=== PATIENT | female | born 1960 | race African-American/Black ===

== ENCOUNTER 2021-07-07 23:33 | Inpatient (IN) | payer OTHER ==
[~2021-07-07] VITALS: Ht 162.6 cm; Wt 99.3 kg
[~2021-07-07 23:33] MED LIST: ALBUTEROL; ENALIPRIL; IBUP-1008; NIFEDICAL
[2021-07-07] MEDS ORDERED: ONDANSETRON HCL 4MG/2ML INJ IV STA (23:44)
[2021-07-08 01:22] LABS: BASOPHILS % 0.5 % (0.0-2.0); EOSINOPHILS % 0.8 % (0.0-5.0); HEMATOCRIT. 32.8 % (36.0-48.0); HEMOGLOBIN. 10.1 g/dL (12.0-16.0); LYMPHOCYTES % 9.8 % (20.0-50.0); MEAN CORPUSCULAR HEMOGLOBIN 21.5 pg (28.0-32.0); MEAN CORPUSCULAR VOLUME 69.5 fL (81.0-99.0); MEAN PLATELET VOLUME 8.7 fl (7.4-10.4); MONOCYTES % 5.9 % (2.0-8.0); PLATELET 317 x1000/uL (130-400); RED BLOOD CELL COUNT 4.72 mill/uL (4.2-5.4)
[2021-07-08 01:29] LABS: CHLORIDE 109 mEq/L (98-107)
[2021-07-08] MEDS ORDERED: MORPHINE SULFATE 4 MG/ML CPJ (NOT FOR IM USE) IV ONE ×2 (02:00→04:00)
[2021-07-08 02:38] LABS: CLARITY URINE CLEAR (CLEAR); COLOR URINE YELLOW (YELLOW); KETONES URINE NEGATIVE (NEGATIVE); LEUKOCYTE ESTERASE URINE NEGATIVE (NEGATIVE); NITRITE URINE NEGATIVE (NEGATIVE); OCCULT BLOOD URINE NEGATIVE (NEGATIVE); PROTEIN URINE NEGATIVE (NEGATIVE); SPECIFIC GRAVITY URINE 1.017 (1.005-1.030); UROBILINOGEN URINE 0.2 E.U./dL (0.2-1.0)
[2021-07-08] MEDS ORDERED: PIPERACILLIN/TAZOBACTAM 3.375GM/50ML PREMIX IV SCH (03:30)
[2021-07-08] MEDS ORDERED: METRONIDAZOLE 500 MG PREMIX 100 ML IV ONE (03:30)
[2021-07-08] MEDS ORDERED: IOHEXOL-300 100 ML BOTTLE ONE (03:33)
[2021-07-08] MEDS ORDERED: METRONIDAZOLE 500MG TABLET PO SCH ×2 (03:45→14:00)
[2021-07-08 07:06] LABS: PLATELET ESTIMATE NORMAL
[2021-07-08] MEDS ORDERED: SODIUM CHLORIDE 0.9% 1,000 ML IV SCH (08:45)
[2021-07-08] MEDS ORDERED: NALOXONE HCL 0.4MG/ML VIAL IV PRN (09:00)
[2021-07-08] MEDS: HYDROCODONE/ACETAMINOPHEN 5/325MG TABLET PO PRN ×2 (09:05→15:46)
[2021-07-08] MEDS: PANTOPRAZOLE SODIUM 40 MG/VIAL IV SCH (09:05)
[2021-07-08] MEDS ORDERED: METRONIDAZOLE 500MG/100ML PREMIX IV SCH (14:00)
[2021-07-08 15:29] LABS: CHLORIDE 106 mEq/L (98-107)
[2021-07-08 15:31] LABS: HEMATOCRIT 32.7 % (36.0-48.0); HEMOGLOBIN 10.1 g/dL (12.0-16.0); MEAN CORPUSCULAR HEMOGLOBIN 21.5 pg (28.0-32.0); MEAN CORPUSCULAR VOLUME 69.6 fL (81.0-99.0); PLATELET 290 x1000/uL (130-400); RED CELL DISTRIBUTION WIDTH 15.9 % (11.6-14.6)
[2021-07-08 15:38] LABS: CREATINE KINASE 82 IU/L (26-192)
[2021-07-08] MEDS ORDERED: LEVOFLOXACIN 500MG PREMIX 100 ML IV NR ×3 (16:45→20:00)
[2021-07-08 18:20] VITALS: BP 145/88
[2021-07-08] MEDS: ACETAMINOPHEN 325MG TABLET PO PRN (18:25)
[2021-07-08] MEDS ORDERED: nifedipine PO (18:43)
[2021-07-08] MEDS ORDERED: FERR-71 PO (18:43)
[2021-07-08] MEDS ORDERED: HYDR25TA PO (18:43)
[2021-07-08 20:00] VITALS: BP 152/60
[2021-07-08] MEDS ORDERED: METRONIDAZOLE 500 MG PREMIX 100 ML IV SCH (21:30)
[2021-07-08] MEDS: MORPHINE SULFATE 2 MG/ML CPJ (NOT FOR IM USE) IV PRN (21:41)
[2021-07-08] MEDS: DEXT 5%/0.45% NACL KCL 20MEQ/L 1,000 ML IV SCH (23:30)
[2021-07-09] VITALS (49 sets, daily range): BP systolic 114–172; BP diastolic 61–126
[2021-07-09] MEDS: METRONIDAZOLE 500MG TABLET PO SCH ×3 (00:10→14:00)
[2021-07-09] MEDS: MORPHINE SULFATE 2 MG/ML CPJ (NOT FOR IM USE) IV PRN (05:11)
[2021-07-09] MEDS: ONDANSETRON HCL 4MG/2ML INJ IV PRN (05:18)
[2021-07-09 07:10] LABS: BASOPHILS % 0.2 % (0.0-2.0); HEMATOCRIT. 29.5 % (36.0-48.0); HEMOGLOBIN. 9.4 g/dL (12.0-16.0); LYMPHOCYTES % 7.9 % (20.0-50.0); MEAN CORPUSCULAR HEMOGLOBIN 22.3 pg (28.0-32.0); MEAN CORPUSCULAR VOLUME 69.8 fL (81.0-99.0); MEAN PLATELET VOLUME 8.7 fl (7.4-10.4); NEUTROPHILS % 82.9 % (40.0-76.0); PLATELET 257 x1000/uL (130-400); RED BLOOD CELL COUNT 4.22 mill/uL (4.2-5.4); RED CELL DISTRIBUTION WIDTH 15.6 % (11.6-14.6)
[2021-07-09 07:35] LABS: CHLORIDE 106 mEq/L (98-107)
[2021-07-09 07:53] LABS: PHOSPHORUS 2.1 mg/dL (2.5-4.9)
[2021-07-09 07:54] LABS: LDL CHOLESTEROL 68 mg/dL (5-100)
[2021-07-09 08:01] LABS: HDL CHOLESTEROL 72 mg/dL (40-59)
[2021-07-09 08:03] LABS: T4 FREE 1.07 ng/dL (0.76-1.46)
[2021-07-09] MEDS ORDERED: BUPIVACAINE HCL 0.5% (5MG/ML) 50ML ONE (09:28)
[2021-07-09] MEDS ORDERED: HYDROMORPHONE HCL/PF 2MG/ML (OR) ONE (09:34)
[2021-07-09] MEDS ORDERED: ROCURONIUM BROMIDE 10MG/ML VIAL 5ML IV ONE (09:34)
[2021-07-09] MEDS ORDERED: DEXAMETHASONE 4MG/ML 1ML VIAL ONE (09:35)
[2021-07-09] MEDS ORDERED: PROPOFOL 10MG/ML 100ML 100 ML IV ONE (09:38)
[2021-07-09] MEDS ORDERED: CEFAZOLIN SODIUM 1000MG/VIAL ONE (09:51)
[2021-07-09] MEDS ORDERED: ALBUMIN HUMAN 12.5GM/50ML (25%) IV ONE (09:53)
[2021-07-09] MEDS ORDERED: MIDAZOLAM HCL 5 MG/ML VIAL ONE (10:48)
[2021-07-09] MEDS ORDERED: LEVOFLOXACIN 500MG PREMIX 100 ML IV SCH (11:00)
[2021-07-09] MEDS ORDERED: HYDROMORPHONE HCL/PF 2MG/ML CPJ IV PRN (11:15)
[2021-07-09] MEDS: PROPOFOL 10MG/ML 100ML 100 ML IV PRN ×3 (11:30→22:46)
[2021-07-09] MEDS ORDERED: FENTANYL CITRATE/PF 2,500 MCG in SODIUM CHLORIDE 0.9% 200 ML IV PRN (11:30)
[2021-07-09 11:38] LABS: BG BASE EXCESS -3.9 mmol/L (-2.0-2.0); BG CARBOXYHEMOGLOBIN 0.4 % (0.5-1.5); BG DEOXYHEMOGLOBIN 0.8 % (0.0-5.0); BG FRACTION INSPIRED OXYGEN 100; BG HCO3 ACT 22.9 mmol/L (22.0-26.0); BG METHEMOGLOBIN 0.3 % (0.0-1.5); BG OXYGEN SATURATION 99.2 % (92.0-98.5); BG OXYHEMOGLOBIN 98.5 % (94.0-97.0); BG PCO2 50.8 mmHg (35.0-45.0); BG PH 7.272 (7.350-7.450); BG PO2 536.5 mmHg (75.0-100.0); BG SAMPLE SITE LEFT BRACHIAL; BG TOTAL HEMOGLOBIN 8.5 g/dL (12.0-18.0); BG VENT MODE RESUS BAG
[2021-07-09] MEDS ORDERED: MAGNESIUM 2 G PREMIX 50 ML IV SCH (12:00)
[2021-07-09] MEDS: PANTOPRAZOLE SODIUM 40 MG/VIAL IV SCH (12:21)
[2021-07-09] MEDS ORDERED: POTASSIUM PHOS,M-BASIC-D-BASIC 20 MMOL in DEXT 5% WATER 243.3333 ML IV SCH (14:00)
[2021-07-09] MEDS: METHYLPREDNISOLONE SOD SUCC 40 MG/ML VIAL IV SCH ×2 (14:01→22:44)
[2021-07-09 14:16] LABS: BG BASE EXCESS -2.2 mmol/L (-2.0-2.0); BG DEOXYHEMOGLOBIN 2.2 % (0.0-5.0); BG FRACTION INSPIRED OXYGEN 40; BG HCO3 ACT 22.7 mmol/L (22.0-26.0); BG METHEMOGLOBIN 0.1 % (0.0-1.5); BG OXYGEN SATURATION 97.8 % (92.0-98.5); BG OXYHEMOGLOBIN 97.7 % (94.0-97.0); BG PCO2 39.2 mmHg (35.0-45.0); BG PH 7.381 (7.350-7.450); BG PO2 129.9 mmHg (75.0-100.0); BG SAMPLE SITE LEFT RADIAL; BG TOTAL HEMOGLOBIN 8.4 g/dL (12.0-18.0); BG VENT MODE VENT - AC
[2021-07-09 14:31] LABS: HEMATOCRIT. 25.1 % (36.0-48.0); HEMOGLOBIN. 8.1 g/dL (12.0-16.0); MEAN CORPUSCULAR HEMOGLOBIN 22.1 pg (28.0-32.0); MEAN CORPUSCULAR VOLUME 68.8 fL (81.0-99.0); MEAN PLATELET VOLUME 7.9 fl (7.4-10.4); PLATELET 225 x1000/uL (130-400); RED BLOOD CELL COUNT 3.65 mill/uL (4.2-5.4); RED CELL DISTRIBUTION WIDTH 15.6 % (11.6-14.6)
[2021-07-09 14:48] LABS: PHOSPHORUS 2.7 mg/dL (2.5-4.9)
[2021-07-09] MEDS: IPRATROPIUM/ALBUTEROL 0.5-3(2.5)MG/3ML NEB HHN SCH ×2 (15:31→20:13)
[2021-07-09 15:46] LABS: PLATELET ESTIMATE NORMAL
[2021-07-09] MEDS: DEXT 5%/0.45% NACL KCL 20MEQ/L 1,000 ML IV SCH (17:30)
[2021-07-09] MEDS: PIPERACILLIN/TAZOBACTAM 3.375 G in DEXTROSE 5% WATER 50 ML IV SCH ×2 (17:31→22:44)
[2021-07-09] MEDS ORDERED: METRONIDAZOLE 500MG TABLET PO SCH (23:30)
[2021-07-10] VITALS (96 sets, daily range): BP systolic 96–165; BP diastolic 42–113
[2021-07-10] MEDS: IPRATROPIUM/ALBUTEROL 0.5-3(2.5)MG/3ML NEB HHN SCH ×6 (00:08→20:41)
[2021-07-10] MEDS: PROPOFOL 10MG/ML 100ML 100 ML IV PRN (04:36)
[2021-07-10] MEDS: DEXT 5%/0.45% NACL KCL 20MEQ/L 1,000 ML IV SCH ×2 (04:48→15:24)
[2021-07-10] MEDS: METHYLPREDNISOLONE SOD SUCC 40 MG/ML VIAL IV SCH ×2 (05:57→15:24)
[2021-07-10] MEDS: PIPERACILLIN/TAZOBACTAM 3.375 G in DEXTROSE 5% WATER 50 ML IV SCH ×3 (05:58→21:15)
[2021-07-10 06:11] LABS: HEMATOCRIT. 26.5 % (36.0-48.0); HEMOGLOBIN. 8.3 g/dL (12.0-16.0); MEAN CORPUSCULAR VOLUME 70.5 fL (81.0-99.0); MEAN PLATELET VOLUME 8.3 fl (7.4-10.4); PLATELET 241 x1000/uL (130-400); RED BLOOD CELL COUNT 3.77 mill/uL (4.2-5.4); RED CELL DISTRIBUTION WIDTH 16.1 % (11.6-14.6)
[2021-07-10] MEDS: PANTOPRAZOLE SODIUM 40 MG/VIAL IV SCH (08:16)
[2021-07-10 08:45] LABS: BG BASE EXCESS -1.3 mmol/L (-2.0-2.0); BG CARBOXYHEMOGLOBIN 0.1 % (0.5-1.5); BG DEOXYHEMOGLOBIN 4.7 % (0.0-5.0); BG FRACTION INSPIRED OXYGEN 35; BG METHEMOGLOBIN 0.4 % (0.0-1.5); BG OXYGEN SATURATION 95.3 % (92.0-98.5); BG OXYHEMOGLOBIN 94.8 % (94.0-97.0); BG PCO2 36.9 mmHg (35.0-45.0); BG PH 7.413 (7.350-7.450); BG PO2 80.2 mmHg (75.0-100.0); BG TOTAL HEMOGLOBIN 8.6 g/dL (12.0-18.0); BG VENT MODE VENT - AC
[2021-07-10 10:14] LABS: BG BASE EXCESS -0.6 mmol/L (-2.0-2.0); BG CARBOXYHEMOGLOBIN 0.3 % (0.5-1.5); BG DEOXYHEMOGLOBIN 2.6 % (0.0-5.0); BG FRACTION INSPIRED OXYGEN 35; BG HCO3 ACT 24.3 mmol/L (22.0-26.0); BG METHEMOGLOBIN 0.1 % (0.0-1.5); BG OXYGEN SATURATION 97.4 % (92.0-98.5); BG PCO2 41.3 mmHg (35.0-45.0); BG PH 7.388 (7.350-7.450); BG PO2 107.9 mmHg (75.0-100.0); BG SAMPLE SITE RIGHT BRACHIAL; BG TOTAL RESPIRATORY RATE 30 b/min; BG VENT MODE VENT - CPAP
[2021-07-10 10:20] LABS: PLATELET ESTIMATE NORMAL
[2021-07-10] MEDS: MORPHINE SULFATE 2 MG/ML CPJ (NOT FOR IM USE) IV PRN ×2 (10:42→15:33)
[2021-07-10] MEDS: BLOOD SUGAR DIAGNOSTIC STRIP TEST SCH ×2 (17:05→21:25)
[2021-07-10] MEDS: INSULIN LISPRO 100 UNITS/ML SUBCUT SCH ×2 (17:20→21:25)
[2021-07-10] MEDS: HYDROCODONE/ACETAMINOPHEN 5/325MG TABLET PO PRN (20:18)
[2021-07-10] MEDS: ONDANSETRON HCL 4MG/2ML INJ IV PRN (23:01)
[2021-07-10] MEDS: HYDROMORPHONE HCL/PF 2MG/ML CPJ IV PRN (23:01)
[2021-07-11] VITALS (81 sets, daily range): BP systolic 100–177; BP diastolic 37–131
[2021-07-11] MEDS: DEXT 5%/0.45% NACL KCL 20MEQ/L 1,000 ML IV SCH ×3 (00:42→20:28)
[2021-07-11] MEDS: HYDROMORPHONE HCL/PF 2MG/ML CPJ IV PRN ×3 (05:12→21:47)
[2021-07-11] MEDS: ONDANSETRON HCL 4MG/2ML INJ IV PRN ×3 (05:12→21:53)
[2021-07-11] MEDS: PIPERACILLIN/TAZOBACTAM 3.375 G in DEXTROSE 5% WATER 50 ML IV SCH ×3 (05:25→21:46)
[2021-07-11 06:06] LABS: HEMATOCRIT. 26.8 % (36.0-48.0); HEMOGLOBIN. 8.3 g/dL (12.0-16.0); MEAN CORPUSCULAR VOLUME 71.2 fL (81.0-99.0); MEAN PLATELET VOLUME 8.4 fl (7.4-10.4); PLATELET 271 x1000/uL (130-400); RED BLOOD CELL COUNT 3.76 mill/uL (4.2-5.4); RED CELL DISTRIBUTION WIDTH 16.2 % (11.6-14.6)
[2021-07-11 06:31] LABS: CHLORIDE 109 mEq/L (98-107)
[2021-07-11] MEDS: IPRATROPIUM/ALBUTEROL 0.5-3(2.5)MG/3ML NEB HHN SCH ×4 (07:50→20:28)
[2021-07-11] MEDS: BLOOD SUGAR DIAGNOSTIC STRIP TEST SCH ×4 (07:56→21:28)
[2021-07-11] MEDS: PANTOPRAZOLE SODIUM 40 MG/VIAL IV SCH (09:44)
[2021-07-11] MEDS: INSULIN LISPRO 100 UNITS/ML SUBCUT SCH ×4 (09:44→21:48)
[2021-07-11] MEDS: METHYLPREDNISOLONE SOD SUCC 40 MG/ML VIAL IV SCH (09:44)
[2021-07-11] MEDS ORDERED: IPRATROPIUM/ALBUTEROL 0.5-3(2.5)MG/3ML NEB HHN PRN (11:30)
[2021-07-11] MEDS ORDERED: ACETYLCYSTEINE 100MG/ML 10% VIAL 4ML INH NR (13:00)
[2021-07-11 19:27] LABS: PLATELET ESTIMATE NORMAL
[2021-07-11] MEDS: GUAIFENESIN 600MG ER TABLET PO SCH (21:00)
[2021-07-12] VITALS (38 sets, daily range): BP systolic 98–162; BP diastolic 55–103
[2021-07-12] MEDS: IPRATROPIUM/ALBUTEROL 0.5-3(2.5)MG/3ML NEB HHN SCH ×6 (00:26→21:12)
[2021-07-12] MEDS: HYDROMORPHONE HCL/PF 2MG/ML CPJ IV PRN ×8 (01:39→21:28)
[2021-07-12 06:14] LABS: BASOPHILS % 0.6 % (0.0-2.0); EOSINOPHILS % 0.1 % (0.0-5.0); HEMOGLOBIN. 9.1 g/dL (12.0-16.0); LYMPHOCYTES % 14.6 % (20.0-50.0); MEAN CORPUSCULAR HEMOGLOBIN 22.2 pg (28.0-32.0); MEAN CORPUSCULAR VOLUME 70.4 fL (81.0-99.0); MEAN PLATELET VOLUME 8.3 fl (7.4-10.4); MONOCYTES % 8.9 % (2.0-8.0); NEUTROPHILS % 75.8 % (40.0-76.0); PLATELET 330 x1000/uL (130-400); RED BLOOD CELL COUNT 4.12 mill/uL (4.2-5.4); RED CELL DISTRIBUTION WIDTH 15.8 % (11.6-14.6)
[2021-07-12] MEDS: PIPERACILLIN/TAZOBACTAM 3.375 G in DEXTROSE 5% WATER 50 ML IV SCH ×3 (06:17→21:00)
[2021-07-12] MEDS: DEXT 5%/0.45% NACL KCL 20MEQ/L 1,000 ML IV SCH (06:22)
[2021-07-12] MEDS: INSULIN LISPRO 100 UNITS/ML SUBCUT SCH ×4 (07:38→22:01)
[2021-07-12] MEDS: ONDANSETRON HCL 4MG/2ML INJ IV PRN ×2 (07:38→15:02)
[2021-07-12] MEDS: BLOOD SUGAR DIAGNOSTIC STRIP TEST SCH ×3 (08:19→21:00)
[2021-07-12] MEDS: METHYLPREDNISOLONE SOD SUCC 40 MG/ML VIAL IV SCH (09:00)
[2021-07-12] MEDS: GUAIFENESIN 600MG ER TABLET PO SCH ×2 (09:00→21:00)
[2021-07-12] MEDS: PANTOPRAZOLE SODIUM 40 MG/VIAL IV SCH (09:00)
[2021-07-12] MEDS: DEXT 5%/0.45% NACL 1000ML 1,000 ML IV SCH (18:22)
[2021-07-13] VITALS (12 sets, daily range): BP systolic 134–169; BP diastolic 76–99
[2021-07-13] MEDS: IPRATROPIUM/ALBUTEROL 0.5-3(2.5)MG/3ML NEB HHN SCH ×5 (00:44→20:28)
[2021-07-13] MEDS: HYDRALAZINE 20MG/ML VIAL IV PRN ×2 (01:29→14:18)
[2021-07-13] MEDS: PIPERACILLIN/TAZOBACTAM 3.375 G in DEXTROSE 5% WATER 50 ML IV SCH ×3 (06:22→21:38)
[2021-07-13] MEDS: DEXT 5%/0.45% NACL 1000ML 1,000 ML IV SCH (06:22)
[2021-07-13 06:48] LABS: BASOPHILS % 0.3 % (0.0-2.0); HEMATOCRIT. 30.5 % (36.0-48.0); HEMOGLOBIN. 9.5 g/dL (12.0-16.0); LYMPHOCYTES % 9.1 % (20.0-50.0); MEAN CORPUSCULAR HEMOGLOBIN 21.8 pg (28.0-32.0); MEAN CORPUSCULAR VOLUME 70.1 fL (81.0-99.0); MEAN PLATELET VOLUME 8.6 fl (7.4-10.4); NEUTROPHILS % 81.6 % (40.0-76.0); PLATELET 345 x1000/uL (130-400); RED BLOOD CELL COUNT 4.35 mill/uL (4.2-5.4)
[2021-07-13 07:29] LABS: CHLORIDE 106 mEq/L (98-107)
[2021-07-13] MEDS: BLOOD SUGAR DIAGNOSTIC STRIP TEST SCH ×4 (07:44→21:39)
[2021-07-13] MEDS: INSULIN LISPRO 100 UNITS/ML SUBCUT SCH ×4 (07:47→21:39)
[2021-07-13] MEDS: PANTOPRAZOLE SODIUM 40 MG/VIAL IV SCH (08:35)
[2021-07-13] MEDS: METHYLPREDNISOLONE SOD SUCC 40 MG/ML VIAL IV SCH (08:35)
[2021-07-13] MEDS: GUAIFENESIN 600MG ER TABLET PO SCH ×2 (08:36→21:00)
[2021-07-13] MEDS: HYDROMORPHONE HCL/PF 2MG/ML CPJ IV PRN ×2 (10:28→18:05)
[2021-07-13] MEDS: ONDANSETRON HCL 4MG/2ML INJ IV PRN ×2 (10:28→18:05)
[2021-07-13] MEDS: SODIUM CHLORIDE 0.45% 1,000 ML IV SCH (13:05)
[2021-07-14] VITALS (11 sets, daily range): BP systolic 135–163; BP diastolic 59–82
[2021-07-14] MEDS: SODIUM CHLORIDE 0.45% 1,000 ML IV SCH ×3 (00:07→21:23)
[2021-07-14] MEDS: HYDROMORPHONE HCL/PF 2MG/ML CPJ IV PRN ×4 (00:08→18:23)
[2021-07-14] MEDS: ONDANSETRON HCL 4MG/2ML INJ IV PRN ×4 (00:08→18:19)
[2021-07-14] MEDS: IPRATROPIUM/ALBUTEROL 0.5-3(2.5)MG/3ML NEB HHN SCH ×6 (00:12→20:54)
[2021-07-14] MEDS: PIPERACILLIN/TAZOBACTAM 3.375 G in DEXTROSE 5% WATER 50 ML IV SCH ×4 (05:32→21:22)
[2021-07-14] MEDS: BLOOD SUGAR DIAGNOSTIC STRIP TEST SCH ×4 (07:30→21:23)
[2021-07-14 08:39] LABS: BASOPHILS % 0.4 % (0.0-2.0); EOSINOPHILS % 0.3 % (0.0-5.0); HEMATOCRIT. 26.9 % (36.0-48.0); HEMOGLOBIN. 8.6 g/dL (12.0-16.0); LYMPHOCYTES % 14.4 % (20.0-50.0); MEAN CORPUSCULAR HEMOGLOBIN 22.1 pg (28.0-32.0); MEAN CORPUSCULAR VOLUME 68.8 fL (81.0-99.0); MEAN PLATELET VOLUME 8.2 fl (7.4-10.4); MONOCYTES % 9.5 % (2.0-8.0); NEUTROPHILS % 75.4 % (40.0-76.0); PLATELET 295 x1000/uL (130-400); RED BLOOD CELL COUNT 3.91 mill/uL (4.2-5.4)
[2021-07-14] MEDS: GUAIFENESIN 600MG ER TABLET PO SCH ×2 (09:00→21:22)
[2021-07-14] MEDS: PANTOPRAZOLE SODIUM 40 MG/VIAL IV SCH (09:43)
[2021-07-14] MEDS: INSULIN LISPRO 100 UNITS/ML SUBCUT SCH ×4 (09:45→21:00)
[2021-07-15] VITALS (13 sets, daily range): BP systolic 100–155; BP diastolic 57–90
[2021-07-15] MEDS: HYDROMORPHONE HCL/PF 2MG/ML CPJ IV PRN ×5 (00:20→23:57)
[2021-07-15] MEDS: ONDANSETRON HCL 4MG/2ML INJ IV PRN ×4 (00:30→23:58)
[2021-07-15] MEDS: IPRATROPIUM/ALBUTEROL 0.5-3(2.5)MG/3ML NEB HHN SCH ×6 (04:18→20:29)
[2021-07-15] MEDS: SODIUM CHLORIDE 0.45% 1,000 ML IV SCH ×3 (05:39→18:39)
[2021-07-15] MEDS: INSULIN LISPRO 100 UNITS/ML SUBCUT SCH ×3 (08:00→21:00)
[2021-07-15] MEDS: BLOOD SUGAR DIAGNOSTIC STRIP TEST SCH ×3 (08:00→21:00)
[2021-07-15] MEDS: GUAIFENESIN 600MG ER TABLET PO SCH ×2 (09:00→21:47)
[2021-07-15] MEDS: PANTOPRAZOLE SODIUM 40 MG/VIAL IV SCH (09:35)
[2021-07-15 21:41] LABS: BASOPHILS % 0.4 % (0.0-2.0); EOSINOPHILS % 2.5 % (0.0-5.0); HEMATOCRIT. 25.8 % (36.0-48.0); HEMOGLOBIN. 8.1 g/dL (12.0-16.0); LYMPHOCYTES % 15.4 % (20.0-50.0); MEAN CORPUSCULAR HEMOGLOBIN 22.2 pg (28.0-32.0); MEAN CORPUSCULAR VOLUME 70.3 fL (81.0-99.0); MONOCYTES % 9.1 % (2.0-8.0); NEUTROPHILS % 72.6 % (40.0-76.0); PLATELET 291 x1000/uL (130-400); RED BLOOD CELL COUNT 3.66 mill/uL (4.2-5.4); RED CELL DISTRIBUTION WIDTH 15.2 % (11.6-14.6)
[2021-07-15 21:54] LABS: CHLORIDE 106 mEq/L (98-107)
[2021-07-16] VITALS (12 sets, daily range): BP systolic 139–180; BP diastolic 61–84
[2021-07-16] MEDS: IPRATROPIUM/ALBUTEROL 0.5-3(2.5)MG/3ML NEB HHN SCH ×4 (00:24→20:00)
[2021-07-16] MEDS: SODIUM CHLORIDE 0.45% 1,000 ML IV SCH ×3 (02:21→21:32)
[2021-07-16] MEDS: HYDROMORPHONE HCL/PF 2MG/ML CPJ IV PRN ×2 (05:35→12:02)
[2021-07-16] MEDS: ONDANSETRON HCL 4MG/2ML INJ IV PRN ×4 (05:36→23:56)
[2021-07-16] MEDS: BLOOD SUGAR DIAGNOSTIC STRIP TEST SCH ×4 (07:30→21:00)
[2021-07-16] MEDS: INSULIN LISPRO 100 UNITS/ML SUBCUT SCH ×4 (08:00→21:00)
[2021-07-16] MEDS: GUAIFENESIN 600MG ER TABLET PO SCH ×2 (09:06→21:00)
[2021-07-16] MEDS: PANTOPRAZOLE SODIUM 40 MG/VIAL IV SCH (09:06)
[2021-07-16] MEDS: DOCUSATE SODIUM 250MG CAPSULE PO SCH (15:53)
[2021-07-16] MEDS ORDERED: SIMETHICONE 80MG TABLET CHEW PO PRN (18:00)
[2021-07-16] MEDS: HYDROCODONE/ACETAMINOPHEN 5/325MG TABLET PO PRN ×2 (18:47→23:56)
[2021-07-16] MEDS: HYDRALAZINE 20MG/ML VIAL IV PRN (21:43)
[2021-07-16] MEDS ORDERED: NALOXONE HCL 0.4MG/ML VIAL IV PRN (22:00)
[2021-07-17] VITALS (11 sets, daily range): BP systolic 134–168; BP diastolic 68–123
[2021-07-17] MEDS ORDERED: MORPHINE SULFATE 2 MG/ML CPJ (NOT FOR IM USE) IV NR (00:45)
[2021-07-17] MEDS: IPRATROPIUM/ALBUTEROL 0.5-3(2.5)MG/3ML NEB HHN SCH ×6 (04:00→20:00)
[2021-07-17 07:28] LABS: TOTAL IRON BINDING CAPACITY 183 ug/dL (250-450)
[2021-07-17] MEDS: BLOOD SUGAR DIAGNOSTIC STRIP TEST SCH ×4 (07:30→20:42)
[2021-07-17] MEDS: INSULIN LISPRO 100 UNITS/ML SUBCUT SCH ×4 (07:54→20:42)
[2021-07-17] MEDS: ONDANSETRON HCL 4MG/2ML INJ IV PRN ×2 (08:01→13:46)
[2021-07-17] MEDS: DOCUSATE SODIUM 250MG CAPSULE PO SCH (08:01)
[2021-07-17] MEDS: GUAIFENESIN 600MG ER TABLET PO SCH ×2 (08:01→20:41)
[2021-07-17] MEDS: PANTOPRAZOLE SODIUM 40 MG/VIAL IV SCH (08:01)
[2021-07-17] MEDS: SODIUM CHLORIDE 0.45% 1,000 ML IV SCH ×2 (08:02→17:04)
[2021-07-17] MEDS: HYDROCODONE/ACETAMINOPHEN 5/325MG TABLET PO PRN ×2 (09:50→20:41)
[2021-07-17] MEDS: FERROUS SULFATE 325MG TABLET PO SCH ×2 (13:31→17:04)
[2021-07-17] MEDS: HYDRALAZINE 20MG/ML VIAL IV PRN (13:46)
[2021-07-17] MEDS: AMLODIPINE 10MG TABLET PO SCH (13:48)
[2021-07-17 16:22] LABS: BASOPHILS % 0.4 % (0.0-2.0); EOSINOPHILS % 0.7 % (0.0-5.0); HEMATOCRIT. 25.5 % (36.0-48.0); HEMOGLOBIN. 8.1 g/dL (12.0-16.0); LYMPHOCYTES % 11.8 % (20.0-50.0); MEAN CORPUSCULAR HEMOGLOBIN 21.6 pg (28.0-32.0); MEAN CORPUSCULAR VOLUME 67.8 fL (81.0-99.0); MEAN PLATELET VOLUME 7.6 fl (7.4-10.4); MONOCYTES % 4.5 % (2.0-8.0); NEUTROPHILS % 82.6 % (40.0-76.0); PLATELET 404 x1000/uL (130-400); RED BLOOD CELL COUNT 3.76 mill/uL (4.2-5.4); RED CELL DISTRIBUTION WIDTH 15.4 % (11.6-14.6)
[2021-07-17 16:39] LABS: CHLORIDE 104 mEq/L (98-107)
[2021-07-18] VITALS: BP 168/85
[2021-07-18] MEDS: SODIUM CHLORIDE 0.45% 1,000 ML IV SCH ×3 (03:00→22:20)
[2021-07-18 04:00] VITALS: BP 136/72
[2021-07-18] MEDS: IPRATROPIUM/ALBUTEROL 0.5-3(2.5)MG/3ML NEB HHN SCH ×6 (04:00→20:27)
[2021-07-18] MEDS ORDERED: POTASSIUM CHLORIDE 20MEQ TABLET SR PO SCH (07:15)
[2021-07-18] MEDS: HYDROCODONE/ACETAMINOPHEN 5/325MG TABLET PO PRN ×3 (07:32→20:57)
[2021-07-18] MEDS: INSULIN LISPRO 100 UNITS/ML SUBCUT SCH ×4 (07:49→20:57)
[2021-07-18] MEDS: BLOOD SUGAR DIAGNOSTIC STRIP TEST SCH ×4 (07:49→20:57)
[2021-07-18 08:00] VITALS: BP 171/95
[2021-07-18] MEDS: PANTOPRAZOLE SODIUM 40 MG/VIAL IV SCH (08:06)
[2021-07-18] MEDS: FERROUS SULFATE 325MG TABLET PO SCH ×3 (08:06→17:24)
[2021-07-18] MEDS: DOCUSATE SODIUM 250MG CAPSULE PO SCH (08:06)
[2021-07-18] MEDS: GUAIFENESIN 600MG ER TABLET PO SCH ×2 (08:06→20:50)
[2021-07-18] MEDS: AMLODIPINE 10MG TABLET PO SCH (08:06)
[2021-07-18 10:00] VITALS: BP 154/76
[2021-07-18] MEDS: ONDANSETRON HCL 4MG/2ML INJ IV PRN ×2 (15:17→21:54)
[2021-07-18 16:00] VITALS: BP 124/67
[2021-07-18 16:59] LABS: BASOPHILS % 0.6 % (0.0-2.0); HEMATOCRIT. 26.9 % (36.0-48.0); HEMOGLOBIN. 8.5 g/dL (12.0-16.0); LYMPHOCYTES % 8.5 % (20.0-50.0); MEAN CORPUSCULAR HEMOGLOBIN 21.9 pg (28.0-32.0); MEAN CORPUSCULAR VOLUME 69.5 fL (81.0-99.0); MEAN PLATELET VOLUME 8.2 fl (7.4-10.4); MONOCYTES % 5.6 % (2.0-8.0); NEUTROPHILS % 84.3 % (40.0-76.0); PLATELET 417 x1000/uL (130-400); RED BLOOD CELL COUNT 3.88 mill/uL (4.2-5.4); RED CELL DISTRIBUTION WIDTH 15.5 % (11.6-14.6)
[2021-07-18 17:05] LABS: CHLORIDE 105 mEq/L (98-107)
[2021-07-18 20:00] VITALS: BP 162/94
[2021-07-19] VITALS: BP 172/90
[2021-07-19] MEDS: IPRATROPIUM/ALBUTEROL 0.5-3(2.5)MG/3ML NEB HHN SCH ×4 (00:15→21:05)
[2021-07-19 03:51] VITALS: BP 165/93
[2021-07-19] MEDS: ONDANSETRON HCL 4MG/2ML INJ IV PRN (05:59)
[2021-07-19] MEDS: BLOOD SUGAR DIAGNOSTIC STRIP TEST SCH ×4 (07:25→20:59)
[2021-07-19] MEDS: INSULIN LISPRO 100 UNITS/ML SUBCUT SCH ×4 (07:25→20:59)
[2021-07-19 08:00] VITALS: BP 154/73
[2021-07-19] MEDS: PANTOPRAZOLE SODIUM 40 MG/VIAL IV SCH (08:48)
[2021-07-19] MEDS: GUAIFENESIN 600MG ER TABLET PO SCH ×2 (08:48→20:59)
[2021-07-19] MEDS: FERROUS SULFATE 325MG TABLET PO SCH ×3 (08:48→17:44)
[2021-07-19 12:00] VITALS: BP 135/71
[2021-07-19] MEDS: DOCUSATE SODIUM 250MG CAPSULE PO SCH (12:56)
[2021-07-19] MEDS: AMLODIPINE 10MG TABLET PO SCH (12:56)
[2021-07-19] MEDS: SODIUM CHLORIDE 0.45% 1,000 ML IV SCH (19:00)
[2021-07-19 20:00] VITALS: BP 157/73
[2021-07-19] MEDS: HYDROCODONE/ACETAMINOPHEN 5/325MG TABLET PO PRN (21:00)
[2021-07-19 21:29] LABS: BASOPHILS % 0.7 % (0.0-2.0); EOSINOPHILS % 1.1 % (0.0-5.0); HEMATOCRIT. 27.2 % (36.0-48.0); HEMOGLOBIN. 8.5 g/dL (12.0-16.0); LYMPHOCYTES % 10.2 % (20.0-50.0); MEAN CORPUSCULAR HEMOGLOBIN 21.6 pg (28.0-32.0); MEAN CORPUSCULAR VOLUME 69.3 fL (81.0-99.0); MEAN PLATELET VOLUME 7.7 fl (7.4-10.4); MONOCYTES % 5.8 % (2.0-8.0); NEUTROPHILS % 82.2 % (40.0-76.0); PLATELET 416 x1000/uL (130-400); RED BLOOD CELL COUNT 3.92 mill/uL (4.2-5.4); RED CELL DISTRIBUTION WIDTH 15.8 % (11.6-14.6)
[2021-07-19 21:34] LABS: CHLORIDE 107 mEq/L (98-107)
[2021-07-20] VITALS (8 sets, daily range): BP systolic 140–187; BP diastolic 68–79
[2021-07-20] MEDS: IPRATROPIUM/ALBUTEROL 0.5-3(2.5)MG/3ML NEB HHN SCH ×2 (01:07→04:56)
[2021-07-20] MEDS: SODIUM CHLORIDE 0.45% 1,000 ML IV SCH ×2 (05:00→10:00)
[2021-07-20] MEDS: BLOOD SUGAR DIAGNOSTIC STRIP TEST SCH ×4 (07:30→20:56)
[2021-07-20] MEDS ORDERED: LIDOCAINE HCL 1% 20ML VIAL (Pyxis) INJ ONE (07:51)
[2021-07-20] MEDS: INSULIN LISPRO 100 UNITS/ML SUBCUT SCH ×4 (08:00→20:57)
[2021-07-20] MEDS: FERROUS SULFATE 325MG TABLET PO SCH ×3 (08:00→17:33)
[2021-07-20] MEDS: DOCUSATE SODIUM 250MG CAPSULE PO SCH (09:00)
[2021-07-20] MEDS: GUAIFENESIN 600MG ER TABLET PO SCH (09:00)
[2021-07-20] MEDS: AMLODIPINE 10MG TABLET PO SCH (09:23)
[2021-07-20] MEDS: PANTOPRAZOLE SODIUM 40 MG/VIAL IV SCH (09:23)
[2021-07-20] MEDS: HYDROCODONE/ACETAMINOPHEN 5/325MG TABLET PO PRN (09:29)
[2021-07-20] MEDS ORDERED: POTASSIUM CHLORIDE INJ 40 MEQ in DEXT 5% WATER 250 ML IV NR (17:00)
[2021-07-20] MEDS: DEXTROSE 50% WATER 50ML SYRINGE IV PRN (17:57)
[2021-07-20] MEDS: HYDRALAZINE 20MG/ML VIAL IV PRN (17:58)
[2021-07-20] MEDS ORDERED: MORPHINE SULFATE 2 MG/ML CPJ (NOT FOR IM USE) IV NR (19:45)
[2021-07-21] VITALS (7 sets, daily range): BP systolic 149–173; BP diastolic 68–93
[2021-07-21] MEDS: BLOOD SUGAR DIAGNOSTIC STRIP TEST SCH ×4 (07:30→21:00)
[2021-07-21] MEDS: FERROUS SULFATE 325MG TABLET PO SCH ×3 (08:00→18:00)
[2021-07-21] MEDS: INSULIN LISPRO 100 UNITS/ML SUBCUT SCH ×4 (08:00→21:00)
[2021-07-21] MEDS: AMLODIPINE 10MG TABLET PO SCH (09:00)
[2021-07-21] MEDS: DOCUSATE SODIUM 250MG CAPSULE PO SCH (09:00)
[2021-07-21] MEDS: PANTOPRAZOLE SODIUM 40 MG/VIAL IV SCH (09:00)
[2021-07-21 10:23] LABS: BASOPHILS % 0.9 % (0.0-2.0); EOSINOPHILS % 1.5 % (0.0-5.0); HEMATOCRIT. 24.8 % (36.0-48.0); HEMOGLOBIN. 7.9 g/dL (12.0-16.0); LYMPHOCYTES % 8.7 % (20.0-50.0); MEAN CORPUSCULAR HEMOGLOBIN 21.9 pg (28.0-32.0); MEAN PLATELET VOLUME 8.5 fl (7.4-10.4); MONOCYTES % 6.2 % (2.0-8.0); NEUTROPHILS % 82.7 % (40.0-76.0); PLATELET 355 x1000/uL (130-400); RED BLOOD CELL COUNT 3.59 mill/uL (4.2-5.4); RED CELL DISTRIBUTION WIDTH 15.7 % (11.6-14.6)
[2021-07-21 10:32] LABS: CHLORIDE 106 mEq/L (98-107)
[2021-07-21] MEDS: MORPHINE SULFATE 2 MG/ML CPJ (NOT FOR IM USE) IV PRN ×3 (13:11→21:52)
[2021-07-21] MEDS: SODIUM CHLORIDE 0.45% 1,000 ML IV SCH (17:42)
[2021-07-21] MEDS ORDERED: MAGNESIUM 2 G PREMIX 50 ML IV NR (19:00)
[2021-07-21] MEDS: DEXTROSE 50% WATER 50ML SYRINGE IV PRN (20:56)
[2021-07-22] VITALS: BP 145/77
[2021-07-22 04:00] VITALS: BP 138/66
[2021-07-22] MEDS: MORPHINE SULFATE 2 MG/ML CPJ (NOT FOR IM USE) IV PRN ×3 (06:06→20:32)
[2021-07-22] MEDS: INSULIN LISPRO 100 UNITS/ML SUBCUT SCH ×4 (07:38→20:58)
[2021-07-22] MEDS: BLOOD SUGAR DIAGNOSTIC STRIP TEST SCH ×4 (07:38→20:58)
[2021-07-22 07:40] LABS: BASOPHILS % 0.8 % (0.0-2.0); EOSINOPHILS % 2.3 % (0.0-5.0); HEMATOCRIT. 23.5 % (36.0-48.0); HEMOGLOBIN. 7.7 g/dL (12.0-16.0); LYMPHOCYTES % 9.3 % (20.0-50.0); MEAN CORPUSCULAR HEMOGLOBIN 22.6 pg (28.0-32.0); MEAN CORPUSCULAR VOLUME 69.2 fL (81.0-99.0); MEAN PLATELET VOLUME 7.8 fl (7.4-10.4); MONOCYTES % 9.1 % (2.0-8.0); NEUTROPHILS % 78.5 % (40.0-76.0); PLATELET 307 x1000/uL (130-400); RED BLOOD CELL COUNT 3.39 mill/uL (4.2-5.4); RED CELL DISTRIBUTION WIDTH 15.7 % (11.6-14.6)
[2021-07-22 07:47] LABS: CHLORIDE 105 mEq/L (98-107)
[2021-07-22 08:00] VITALS: BP 161/79
[2021-07-22] MEDS: PANTOPRAZOLE SODIUM 40 MG/VIAL IV SCH (08:55)
[2021-07-22] MEDS: AMLODIPINE 10MG TABLET PO SCH (08:55)
[2021-07-22] MEDS: FERROUS SULFATE 325MG TABLET PO SCH ×3 (08:55→17:18)
[2021-07-22] MEDS: DOCUSATE SODIUM 250MG CAPSULE PO SCH (08:57)
[2021-07-22] MEDS ORDERED: POTASSIUM CHLORIDE INJ 40 MEQ in DEXT 5% WATER 250 ML IV SCH (11:00)
[2021-07-22 12:00] VITALS: BP 157/50
[2021-07-22 16:00] VITALS: BP 145/78
[2021-07-22] MEDS: SODIUM CHLORIDE 0.45% 1,000 ML IV SCH (17:16)
[2021-07-22 20:00] VITALS: BP 139/76
[2021-07-23] VITALS (9 sets, daily range): BP systolic 118–144; BP diastolic 71–83
[2021-07-23] MEDS: SODIUM CHLORIDE 0.45% 1,000 ML IV SCH ×2 (04:48→17:33)
[2021-07-23] MEDS: MORPHINE SULFATE 2 MG/ML CPJ (NOT FOR IM USE) IV PRN (04:49)
[2021-07-23 05:28] LABS: BASOPHILS % 0.9 % (0.0-2.0); EOSINOPHILS % 3.1 % (0.0-5.0); HEMATOCRIT. 22.8 % (36.0-48.0); HEMOGLOBIN. 7.3 g/dL (12.0-16.0); MEAN CORPUSCULAR VOLUME 68.3 fL (81.0-99.0); MEAN PLATELET VOLUME 8.3 fl (7.4-10.4); MONOCYTES % 10.7 % (2.0-8.0); NEUTROPHILS % 71.3 % (40.0-76.0); PLATELET 267 x1000/uL (130-400); RED BLOOD CELL COUNT 3.34 mill/uL (4.2-5.4); RED CELL DISTRIBUTION WIDTH 16.3 % (11.6-14.6)
[2021-07-23 05:58] LABS: CHLORIDE 106 mEq/L (98-107)
[2021-07-23] MEDS: BLOOD SUGAR DIAGNOSTIC STRIP TEST SCH ×4 (07:30→21:00)
[2021-07-23] MEDS: INSULIN LISPRO 100 UNITS/ML SUBCUT SCH ×4 (08:00→21:00)
[2021-07-23] MEDS: DOCUSATE SODIUM 250MG CAPSULE PO SCH (08:47)
[2021-07-23] MEDS: PANTOPRAZOLE SODIUM 40 MG/VIAL IV SCH (08:47)
[2021-07-23] MEDS: AMLODIPINE 10MG TABLET PO SCH (08:47)
[2021-07-23] MEDS: FERROUS SULFATE 325MG TABLET PO SCH ×2 (08:47→17:33)
[2021-07-23] MEDS: KCL 20MEQ/100ML PREMIX 100 ML IV SCH ×2 (10:12→17:51)
[2021-07-23] MEDS: ACETAMINOPHEN 325MG TABLET PO PRN (11:15)
[2021-07-23] MEDS ORDERED: HYDROCODONE/ACETAMINOPHEN 5/325MG TABLET PO PRN (13:00)
[2021-07-23 19:51] LABS: EOSINOPHILS % 2.2 % (0.0-5.0); HEMATOCRIT. 25.1 % (36.0-48.0); LYMPHOCYTES % 16.7 % (20.0-50.0); MEAN CORPUSCULAR HEMOGLOBIN 22.3 pg (28.0-32.0); MEAN CORPUSCULAR VOLUME 69.8 fL (81.0-99.0); MEAN PLATELET VOLUME 7.5 fl (7.4-10.4); MONOCYTES % 9.1 % (2.0-8.0); PLATELET 328 x1000/uL (130-400); RED CELL DISTRIBUTION WIDTH 16.3 % (11.6-14.6)
[2021-07-23 22:09] LABS: PLATELET ESTIMATE NORMAL
[2021-07-24] VITALS: BP 137/71
[2021-07-24 00:38] VITALS: BP 137/70
[2021-07-24] MEDS: SODIUM CHLORIDE 0.45% 1,000 ML IV SCH ×2 (01:33→10:15)
[2021-07-24 04:00] VITALS: BP 142/68
[2021-07-24] MEDS: BLOOD SUGAR DIAGNOSTIC STRIP TEST SCH (07:30)
[2021-07-24 08:00] VITALS: BP_SYST 140; BP_SYST 143; BP_DIAS 82
[2021-07-24] MEDS: INSULIN LISPRO 100 UNITS/ML SUBCUT SCH (08:00)
[2021-07-24] MEDS ORDERED: DOCU250C14 MT (09:36)
[2021-07-24] MEDS ORDERED: HYDR-4001 MT (09:36)
[2021-07-24 10:00] VITALS: BP 143/82
[2021-07-24] MEDS: FERROUS SULFATE 325MG TABLET PO SCH (10:11)
[2021-07-24] MEDS: DOCUSATE SODIUM 250MG CAPSULE PO SCH (10:11)
[2021-07-24] MEDS: AMLODIPINE 10MG TABLET PO SCH (10:14)
[2021-07-24] MEDS: PANTOPRAZOLE SODIUM 40 MG/VIAL IV SCH (10:24)
[2021-07-24 10:47] LABS: BASOPHILS % 0.6 % (0.0-2.0); LYMPHOCYTES % 12.9 % (20.0-50.0); MEAN CORPUSCULAR HEMOGLOBIN 22.9 pg (28.0-32.0); MEAN CORPUSCULAR VOLUME 70.8 fL (81.0-99.0); MONOCYTES % 9.7 % (2.0-8.0); NEUTROPHILS % 75.8 % (40.0-76.0); PLATELET 251 x1000/uL (130-400); RED BLOOD CELL COUNT 3.95 mill/uL (4.2-5.4); RED CELL DISTRIBUTION WIDTH 17.5 % (11.6-14.6)
[2021-07-24 11:00] LABS: CHLORIDE 107 mEq/L (98-107)
[2021-07-24 11:55] VITALS: BP 143/82
== END 2021-07-24 13:00 | disposition home or self-care (01) | DRG 710 ==
LOC: ER 23:33 → MICUSO 07-08 03:39 → 7EST 07-08 16:55 → CVICU 07-09 11:21 → 5EST 07-12 17:32
PROVIDERS: ADMIT Internal Medicine; ATTEND Internal Medicine
PROC: 0DBF0ZZ Excision of Right Large Intestine, Open Approach (ICD-10-PCS; principal; 2021-07-09)
PROC: 02HV33Z Insertion of Infusion Device into Superior Vena Cava, Percutaneous Approach (ICD-10-PCS; 2021-07-20)
PROC: B548ZZA Ultrasonography of Superior Vena Cava, Guidance (ICD-10-PCS; 2021-07-20)
PROC: 30233N1 Transfusion of Nonautologous Red Blood Cells into Peripheral Vein, Percutaneous Approach (ICD-10-PCS; 2021-07-23)
DX: A41.9 Sepsis, unspecified organism (principal); J96.01 Acute respiratory failure with hypoxia; K55.039 Acute (reversible) ischemia of large intestine, extent unspecified; E44.0 Moderate protein-calorie malnutrition; K56.609 Unspecified intestinal obstruction, unspecified as to partial versus complete obstruction; D50.9 Iron deficiency anemia, unspecified; E83.39 Other disorders of phosphorus metabolism; E83.42 Hypomagnesemia; I10 Essential (primary) hypertension; J44.9 Chronic obstructive pulmonary disease, unspecified; K56.7 Ileus, unspecified; T38.0X5A Adverse effect of glucocorticoids and synthetic analogues, initial encounter; R73.9 Hyperglycemia, unspecified; E66.9 Obesity, unspecified; Z78.1 Physical restraint status; Z79.1 Long term (current) use of non-steroidal anti-inflammatories (NSAID); Z79.899 Other long term (current) drug therapy; Z68.37 Body mass index [BMI] 37.0-37.9, adult; Y92.89 Other specified places as the place of occurrence of the external cause
CPT/HCPCS: 36415; 36600; 71045; 74018; 74176; 74177; 76937; 80048; 80053; 80061; 80076; 81003; 82375; 82550; 82728; 82805; 82962; 83036; 83540; 83550; 83605; 83735; 84100; 84145; 84439; 84443; 84478; 84484; 85025; 85027; 86850; 86900; 86920; 87015; 87045; 87070; 87075; 87116; 87427; 87449; 87493; 88307; 89055; 93005; 94640; 97110; 97116; 97162; 97530; 99285; C1725; C1893; C9113; J0360; J0690; J1100; J1170; J1815; J1956; J2250; J2270; J2405; J2543; J2704; J2920; J3010; J3475; J3480; J3490; J7030; J7050; J7060; J7608; P9016; P9047; Q9967

== ENCOUNTER 2025-06-08 09:45 | Inpatient (IN) | payer SELFPAY ==
[~2025-06-08] VITALS: Ht 162.6 cm; Wt 79.8 kg
[~2025-06-08 09:45] MED LIST changes: -ALBUTEROL; +DOCU250C14 MT; -ENALIPRIL; +FERR-71 PO; +HYDR-4001 MT; +HYDR25TA PO; -IBUP-1008; -NIFEDICAL; +nifedipine PO
[2025-06-08 10:22] VITALS: O2SAT 97
[2025-06-08 11:21] LABS: BASOPHILS % 0.7 % (0.0-2.0); EOSINOPHILS % 0.6 % (0.0-5.0); HEMATOCRIT. 35.6 % (36.0-48.0); HEMOGLOBIN. 11.5 g/dL (12.0-16.0); LYMPHOCYTES % 14.2 % (20.0-50.0); MEAN PLATELET VOLUME 8.4 fl (7.4-10.4); MONOCYTES % 7.7 % (2.0-8.0); NEUTROPHILS % 76.8 % (40.0-76.0); PLATELET 318 x1000/uL (130-400); RED BLOOD CELL COUNT 5.19 mill/uL (4.2-5.4); RED CELL DISTRIBUTION WIDTH 16.0 % (11.6-14.6)
[2025-06-08 11:23] LABS: ADD RBC MORPHOLOGY YES
[2025-06-08 11:36] LABS: CREATININE 1.1 mg/dL (0.6-1.0)
[2025-06-08 11:37] LABS: UREA NITROGEN BLOOD 13 mg/dL (9-23)
[2025-06-08 11:38] LABS: ASPARTATE AMINOTRANSFERASE 20 IU/L (<34); TROPONIN I HIGH SENSITIVITY 5 ng/L (3.0-34)
[2025-06-08 11:39] LABS: BILIRUBIN DIRECT 0.2 mg/dL (<=3.0); BILIRUBIN TOTAL 0.8 mg/dL (0.1-1.0); INR 1.0; PROTEIN TOTAL 7.0 g/dL (6.0-8.3)
[2025-06-08] MEDS: ACETAMINOPHEN 325MG TABLET PO ONE (11:44)
[2025-06-08] MEDS: IOHEXOL-350 100 ML BOTTLE ONE (12:56)
[2025-06-08 13:45] LABS: PLATELET ESTIMATE NORMAL
[2025-06-08 15:10] LABS: COLOR URINE YELLOW (YELLOW); GLUCOSE URINE NEGATIVE (NEGATIVE); KETONES URINE NEGATIVE (NEGATIVE); LEUKOCYTE ESTERASE URINE NEGATIVE (NEGATIVE); NITRITE URINE NEGATIVE (NEGATIVE); OCCULT BLOOD URINE TRACE (NEGATIVE); PH URINE 7.0 (4.5-8.0); PROTEIN URINE NEGATIVE (NEGATIVE); SPECIFIC GRAVITY URINE 1.062 (1.005-1.030); UROBILINOGEN URINE 0.2 E.U./dL (0.2-1.0)
[2025-06-08 15:51] LABS: CLARITY URINE SL HAZY (CLEAR); WBC URINE 0-2 /hpf (0-2)
[2025-06-08 15:52] LABS: BACTERIA URINE TRACE; RBC URINE NONE SEEN /hpf (0-2); SQUAMOUS EPITHELIAL CELL URINE 2+ /lpf (RARE/1+)
[2025-06-08 16:30] VITALS: BP 134/76; PULSE 88; RESP 16; TEMP 36.4; TEMP 36.4736; O2SAT 97
[2025-06-08] MEDS ORDERED: ONDANSETRON HCL 4MG/2ML INJ IV PRN (16:45)
[2025-06-08] MEDS ORDERED: ALBU18HF2 IH (17:22)
[2025-06-08] MEDS ORDERED: PANT40TA51 MT (17:22)
[2025-06-08] MEDS ORDERED: HYDR12.54 MT (17:22)
[2025-06-08] MEDS ORDERED: NIFE-32 MT (17:22)
[2025-06-08] MEDS ORDERED: FLUT1BLS9 IH (17:22)
[2025-06-08] MEDS: PANTOPRAZOLE SODIUM 40 MG/VIAL IV SCH (18:10)
[2025-06-08 20:00] VITALS: BP 134/88; PULSE 88; RESP 18; TEMP 36.4; O2SAT 98
[2025-06-08] MEDS: POTASSIUM CHLORIDE 20MEQ TABLET SR PO SCH (20:49)
[2025-06-09] VITALS (7 sets, daily range): BP systolic 104–158; BP diastolic 47–89; PULSE 68–87; RESP 16–18; TEMP 36.3–37.1; O2SAT 95–98
[2025-06-09] MEDS: IPRATROPIUM/ALBUTEROL 0.5-3(2.5)MG/3ML NEB HHN PRN (09:20)
[2025-06-09 10:14] LABS: HEPATITIS C AB NON REACTIVE (Neg) (Negative)
[2025-06-09 13:27] LABS: CREATININE 1.0 mg/dL (0.6-1.0); UREA NITROGEN BLOOD 13 mg/dL (9-23)
[2025-06-09] MEDS: POTASSIUM CHLORIDE 20MEQ TABLET SR PO SCH (21:30)
[2025-06-10] VITALS: BP 128/51; PULSE 90; RESP 18; TEMP 36.2; O2SAT 98
[2025-06-10 04:00] VITALS: BP 117/69; PULSE 75; RESP 17; TEMP 37.1; O2SAT 100
[2025-06-10 08:00] VITALS: BP 136/66; PULSE 78; RESP 18; TEMP 36.4; O2SAT 96
[2025-06-10 12:00] VITALS: BP 128/71; PULSE 74; RESP 18; TEMP 36.4; O2SAT 97
[2025-06-10 12:50] VITALS: BP 128/71; PULSE 74; RESP 18; TEMP 97.6
== END 2025-06-10 14:35 | disposition home or self-care (01) | DRG 249 ==
LOC: ER 11:16 → 5WST 12:36 → EDBEDREQTM 13:11 → EDBEDREQ 13:11 → ENRESERV 15:26
PROVIDERS: ADMIT Internal Medicine; ATTEND Internal Medicine
DX: K52.9 Noninfective gastroenteritis and colitis, unspecified (principal); D64.9 Anemia, unspecified; E66.9 Obesity, unspecified; I10 Essential (primary) hypertension; E87.6 Hypokalemia; F17.210 Nicotine dependence, cigarettes, uncomplicated; Z71.6 Tobacco abuse counseling; Z68.30 Body mass index [BMI] 30.0-30.9, adult
CPT/HCPCS: 36415; 71045; 74174; 80048; 80076; 81003; 84484; 85014; 85018; 85025; 86705; 86850; 86900; 87340; 93005; 93970; 94070; 94640; 94664; 98960; 99291; J2470; Q9967